=== PATIENT | female | born 2000 | race Caucasian/White ===

== ENCOUNTER 2020-04-18 21:40 | Emergency (ER) | payer MEDICAID ==
[2020-04-18 21:51] VITALS: BP 133/85; PULSE 83; RESP 18; TEMP 98.4
[2020-04-18] MEDS ORDERED: SULFAMETH-TMP DS STARTER PACK 2 TAB BTL PO STA (22:46)
[2020-04-18] MEDS ORDERED: SULFAMETHOX-TMP 800-160MG 1 EACH TAB PO STA (22:46)
--- NOTE | 2020-04-18 22:47 | ED ---
Animal Bite HPI - General Chief Complaint: Animal Bite Stated Complaint: Bug bite Time Seen by Provider: 04/18/20 22:14 Source: patient, RN notes reviewed, old records reviewed Mode of arrival: ambulatory Limitations: no limitations - History of Present Illness Initial Comments: This is a 19-year-old female playing soccer. Patient comes in for couple hours after brings ER. Her left arm. Patient presents with increasing redness to that area left shoulder. Otherwise patient has no complaints. She has had history of MRSA, takes no regular medications MD Complaint: other (bug bite) -: hour(s) Left: Shoulder Animal: other (Unsure) Mechanism: bite Pain Description: sharp Severity scale (1-10): 5 Context: other (Playing) Associated Symptoms: none Treatments Prior to Arrival: other (None) - Related Data Previous Rx's Medication Instructions Recorded Sulfamethox-Tmp 800-160Mg [Bactrim 2 tab PO BID #40 tab 04/18/20 DS 800-160 mg] Allergies Allergy/AdvReac Type Severity Reaction Status Date / Time No Known Allergies Allergy Verified 04/18/20 21:49 Review of Systems ROS Statement: Those systems with pertinent positive or pertinent negative responses have been documented in the HPI. ROS Other: All systems not noted in ROS Statement are negative. Past Medical History Past Medical History: No Reported History History of Any Multi-Drug Resistant Organisms: None Reported Additional Past Surgical History / Comment(s): ACL reconstruction on left knee, Past Psychological History: No Psychological Hx Reported Smoking Status: Never smoker Past Alcohol Use History: None Reported Past Drug Use History: None Reported General Exam Limitations: no limitations General appearance: alert, in no apparent distress Head exam: Present: atraumatic, normocephalic, normal inspection Eye exam: Present: normal appearance, PERRL, EOMI. Absent: scleral icterus, conjunctival injection, periorbital swelling ENT exam: Present: normal exam, mucous membranes moist Neck exam: Present: normal inspection. Absent: tenderness, meningismus, lymphadenopathy Respiratory exam: Present: normal lung sounds bilaterally. Absent: respiratory distress, wheezes, rales, rhonchi, stridor Cardiovascular Exam: Present: regular rate, normal rhythm, normal heart sounds. Absent: systolic murmur, diastolic murmur, rubs, gallop, clicks GI/Abdominal exam: Present: soft, normal bowel sounds. Absent: distended, tenderness, guarding, rebound, rigid Extremities exam: Present: normal inspection, full ROM, normal capillary refill. Absent: tenderness, pedal edema, joint swelling, calf tenderness Back exam: Present: normal inspection Neurological exam: Present: alert, oriented X3, CN II-XII intact Psychiatric exam: Present: normal affect, normal mood Skin exam: Present: warm, dry, intact, normal color. Absent: rash Course Vital Signs 04/18/20 21:45 Temperature 98.4 F Pulse Rate 83 Respiratory 18 Rate Blood Pressure 133/85 O2 Sat by Pulse 98 Oximetry - Reevaluation(s) Reevaluation #1: Medical record is reviewed Patient does have mild improvement here in the emergency department Patient informed of results questions answered Procedures - Incision & Drainage Consent Obtained: verbal consent Site: other (left shoulder) Anesthetic Used: lidocaine 1% I&D Cleaning Method: Chloroprep Sterile Field Used?: Yes Scalpel Used: #11 Needle Aspiration Performed?: No Irrigation Performed?: No I&D Drainage Obtained: Pus Culture Obtained?: No Patient Tolerated Procedure: well Medical Decision Making - Medical Decision Making 19 female with abscess to left shoulder possible bug bite, abscesses opened with purulent drainage, patient will place on antibiotics and discharged home Disposition Clinical Impression: Bug bite, Abscess of left arm, Cellulitis Disposition: HOME SELF-CARE Condition: Good Instructions (If sedation given, give patient instructions): Animal Bite (ED), Cellulitis (ED), Abscess (ED) Prescriptions: Sulfamethox-Tmp 800-160Mg [Bactrim DS 800-160 mg] 2 tab PO BID #40 tab Is patient prescribed a controlled substance at d/c from ED?: No Referrals: Andry Roldan MD [Primary Care Provider] - 1-2 days
== END 2020-04-18 23:00 | disposition home or self-care (01) ==
LOC: EC 21:40
DX: S40.262A Insect bite (nonvenomous) of left shoulder, initial encounter (principal); L02.414 Cutaneous abscess of left upper limb; L03.114 Cellulitis of left upper limb; W57.XXXA Bitten or stung by nonvenomous insect and other nonvenomous arthropods, initial encounter; Y93.66 Activity, soccer; Z86.14 Personal history of Methicillin resistant Staphylococcus aureus infection
CPT/HCPCS: 10061; 99283

== ENCOUNTER 2020-05-08 15:08 | Emergency (ER) | payer MEDICAID ==
[2020-05-08] MEDS ORDERED: ACETAMINOPHEN TAB 325 MG TAB PO PRN (16:28)
[2020-05-08 16:29] VITALS: BP 135/91; PULSE 104; RESP 18; TEMP 100
--- NOTE | 2020-05-08 16:32 | ED ---
URI HPI - General Chief Complaint: Upper Respiratory Infection Stated Complaint: Fever,Abdominal pain, Chest pain Time Seen by Provider: 05/08/20 16:28 Source: patient, RN notes reviewed Mode of arrival: ambulatory Limitations: no limitations - History of Present Illness Initial Comments: Patient is a 19-year-old female presenting with fever, generalized malaise, muscle aches, nausea for the past several days. She notes that she had exposure to Covid approximately 3 weeks ago. She noted that she tried taking some Tylenol home for the fever but decided to come in to get evaluated. She noted that her pain was a 5 out of 10. She notes that she does have a mild fever and cough. She denied any other symptoms. She notes that she is usually pretty healthy 19-year-old and doesn't get sick very often. She denied any chest pain headache vomiting diarrhea constipation. - Related Data Previous Rx's Medication Instructions Recorded Sulfamethox-Tmp 800-160Mg [Bactrim 2 tab PO BID #40 tab 04/18/20 DS 800-160 mg] Allergies Allergy/AdvReac Type Severity Reaction Status Date / Time No Known Allergies Allergy Verified 05/08/20 16:29 Review of Systems ROS Statement: Those systems with pertinent positive or pertinent negative responses have been documented in the HPI. ROS Other: All systems not noted in ROS Statement are negative. Past Medical History Past Medical History: No Reported History History of Any Multi-Drug Resistant Organisms: None Reported Additional Past Surgical History / Comment(s): ACL reconstruction on left knee, Past Psychological History: No Psychological Hx Reported Smoking Status: Never smoker Past Alcohol Use History: None Reported Past Drug Use History: None Reported General Exam Limitations: no limitations General appearance: alert, in no apparent distress Head exam: Present: atraumatic, normocephalic, normal inspection Eye exam: Present: normal appearance, PERRL, EOMI. Absent: scleral icterus, conjunctival injection, periorbital swelling Neck exam: Present: normal inspection. Absent: tenderness, meningismus, lymphadenopathy Respiratory exam: Present: normal lung sounds bilaterally. Absent: respiratory distress, wheezes, rales, rhonchi, stridor Cardiovascular Exam: Present: regular rate, normal rhythm, normal heart sounds. Absent: systolic murmur, diastolic murmur, rubs, gallop, clicks GI/Abdominal exam: Present: soft, normal bowel sounds. Absent: distended, tenderness, guarding, rebound, rigid Extremities exam: Present: normal inspection, full ROM, normal capillary refill. Absent: tenderness, pedal edema, joint swelling, calf tenderness Neurological exam: Present: alert, oriented X3, CN II-XII intact Psychiatric exam: Present: normal affect, normal mood Skin exam: Present: warm, dry, intact, normal color. Absent: rash Course Vital Signs 05/08/20 16:26 Temperature 100 F H Pulse Rate 104 H Respiratory 18 Rate Blood Pressure 135/91 O2 Sat by Pulse 100 Oximetry Medical Decision Making - Medical Decision Making 19-year-old female complaining of cold-like symptoms with fever cough generalized muscle aches and fatigue. Chest x-ray, Covid test, basic labs, 4 mg of Zofran, 650 mg Tylenol ordered. Covid-positive. Labs unremarkable. Case discussed with Dr. Cisneros, patient discharged home with conservative management. - Lab Data Result diagrams: 05/08/20 16:52 05/08/20 16:52 Lab Results 05/08/20 05/08/20 05/08/20 Range/Units 16:32 16:52 16:52 WBC 4.4 (4.0-11.0) k/uL RBC 4.53 (3.80-5.40) m/uL Hgb 14.4 (11.4-16.0) gm/dL Hct 39.6 (34.0-46.0) % MCV 87.4 (80.0-100.0) fL MCH 31.7 (25.0-35.0) pg MCHC 36.3 (31.0-37.0) g/dL RDW 11.8 (11.5-15.5) % Plt Count 211 (150-450) k/uL MPV 6.9 Neutrophils % 77 % Lymphocytes % 14 % Monocytes % 6 % Eosinophils % 1 % Basophils % 0 % Neutrophils # 3.4 (1.3-7.7) k/uL Lymphocytes # 0.6 L (1.0-4.8) k/uL Monocytes # 0.3 (0-1.0) k/uL Eosinophils # 0.1 (0-0.7) k/uL Basophils # 0.0 (0-0.2) k/uL Sodium 138 (137-145) mmol/L Potassium 3.9 (3.5-5.1) mmol/L Chloride 105 (98-107) mmol/L Carbon Dioxide 21 L (22-30) mmol/L Anion Gap 12 mmol/L BUN 8 (7-17) mg/dL Creatinine 0.68 (0.52-1.04) mg/dL Est GFR (CKD-EPI)AfAm >90 (>60 ml/min/1.73 sqM) Est GFR (CKD-EPI)NonAf >90 (>60 ml/min/1.73 sqM) Glucose 84 (74-99) mg/dL Calcium 9.4 (8.4-10.2) mg/dL Total Bilirubin 0.5 (0.2-1.3) mg/dL AST 43 H (14-36) U/L ALT 51 H (4-34) U/L Alkaline Phosphatase 68 (38-126) U/L Total Protein 7.7 (6.3-8.2) g/dL Albumin 4.6 (3.5-5.0) g/dL Coronavirus (PCR) Detected A (Not Detectd) Disposition Clinical Impression: COVID-19 Disposition: HOME SELF-CARE Condition: Stable Instructions (If sedation given, give patient instructions): Upper Respiratory Infection (ED), Coronavirus Disease 2019 (COVID-19) Additional Instructions: Please return to the Emergency Department if symptoms worsen or any other concerns. Symptomatic management with [id number] anti-inflammatories, increase oral fluid, rest. Follow-up with primary care in 2 weeks after quarantine. Per CDC guidelines quarantine for 10-14 days. Is patient prescribed a controlled substance at d/c from ED?: No Referrals: Andry Roldan MD [Primary Care Provider] - 1-2 days Time of Disposition: 17:17
[2020-05-08] MEDS ORDERED: ONDANSETRON 4 MG/2 ML VIAL IVP STA (16:33)
[2020-05-08 17:05] LABS: Basophils % (A) 0 %; Eosinophils # (A) 0.1 k/uL (0-0.7); Eosinophils % (A) 1 %; HCT 39.6 % (34.0-46.0); HGB 14.4 gm/dL (11.4-16.0); Lymphocytes # (A) 0.6 k/uL (1.0-4.8); Lymphocytes % (A) 14 %; MCH 31.7 pg (25.0-35.0); MCHC 36.3 g/dL (31.0-37.0); MCV 87.4 fL (80.0-100.0); Mean Platelet Volume 6.9; Monocytes # (A) 0.3 k/uL (0-1.0); Monocytes % (A) 6 %; Neutrophils # (A) 3.4 k/uL (1.3-7.7); Neutrophils % (A) 77 %; Platelet Count 211 k/uL (150-450); RBC 4.53 m/uL (3.80-5.40); RDW 11.8 % (11.5-15.5); WBC 4.4 k/uL (4.0-11.0)
[2020-05-08 17:10] LABS: ALT 51 U/L (4-34); AST 43 U/L (14-36); African American GFR (CKD) >90 (>60 ml/min/1.73 sqM); Albumin 4.6 g/dL (3.5-5.0); Alkaline Phosphatase 68 U/L (38-126); Anion Gap 12 mmol/L; Blood Urea Nitrogen 8 mg/dL (7-17); Calcium 9.4 mg/dL (8.4-10.2); Carbon Dioxide 21 mmol/L (22-30); Chloride 105 mmol/L (98-107); Glucose 84 mg/dL (74-99); Non-African American GFR(CKD) >90 (>60 ml/min/1.73 sqM); Potassium 3.9 mmol/L (3.5-5.1); Sodium 138 mmol/L (137-145); Total Bilirubin 0.5 mg/dL (0.2-1.3); Total Protein 7.7 g/dL (6.3-8.2)
--- NOTE | 2020-05-08 18:05 | XR ---
EXAMINATION TYPE: XR chest 1V portable DATE OF EXAM: 05/08/2020 COMPARISON: NONE HISTORY: Fever TECHNIQUE: Augie view FINDINGS: Heart and mediastinum are normal. Lungs appear clear of infiltrate. Right cardiac border is slightly indistinct probably due to pectus chest deformity. This should be correlated with the physi tia exam. There are no hilar masses. Diaphragm is normal. Bony thorax is intact. IMPRESSION: No definite acute lung disease. Normal heart.
== END 2020-05-08 18:12 | disposition home or self-care (01) ==
LOC: EC 15:08
DX: U07.1 COVID-19 (principal)
CPT/HCPCS: 99285; 96374; 36415; 80053; 85025; 87635; 71045; J2405; 99284